=== PATIENT | male | born 1940 | race Caucasian/White ===

== ENCOUNTER 2024-08-10 15:25 | Inpatient (IN) | payer OTHER ==
[~2024-08-10] VITALS: Ht 170.2 cm; Wt 53.6 kg
[2024-08-10] MEDS ORDERED: Morphine Sulfate 4 MG/1 ML Injection ONE (16:42)
[2024-08-10] MEDS ORDERED: Ondansetron HCl 2 MG / ML 2ML Vial ONE (16:42)
[2024-08-10] MEDS ORDERED: Ondansetron HCl 2 MG / ML 2ML Vial IV ONE (16:50)
[2024-08-10] MEDS ORDERED: Morphine Sulfate 4 MG/1 ML Injection IV ONE (16:50)
[2024-08-10 17:14] LABS: BASOPHILS ABSOLUTE AUTO 0.05 K/mm3 (0.00-0.23); BASOPHILS PERCENT AUTO 1 % (0-2); EOSINOPHILS ABSOLUTE AUTO 0.11 K/mm3 (0.00-0.68); EOSINOPHILS PERCENT AUTO 1 % (0-6); Hematocrit 43.0 % (37.0-53.0); Hemoglobin 15.1 g/dL (13.5-17.5); IMMATURE GRAN ABSOLUTE AUTO 0.04 K/mm3 (0.00-0.10); IMMATURE GRAN PERCENT AUTO 1 % (0-1); LYMPHOCYTES ABSOLUTE AUTO 1.47 K/mm3 (0.84-5.20); LYMPHOCYTES PERCENT AUTO 17 % (21-46); MONOCYTES ABSOLUTE AUTO 0.64 K/mm3 (0.16-1.47); MONOCYTES PERCENT AUTO 8 % (4-13); Mean Corpuscular HGB Conc 35.1 g/dL (31.5-36.5); Mean Corpuscular Volume 94 fL (80-100); NEUTROPHILS ABSOLUTE AUTO 6.18 K/mm3 (1.96-9.15); NEUTROPHILS PERCENT AUTO 73 % (41-73); NRBC ABSOLUTE 0.00 K/mm3 (0.00-0.02); NRBC Auto 0.0 /100 WBC (0.0-0.2); Platelet Count 154 K/mm3 (150-400); RDW Coefficient Variation 13.5 % (11.7-14.2); RDW Standard Deviation 45.5 fL (35.1-46.3)
[2024-08-10 17:27] LABS: Alanine Aminotransfer (ALT/SGP 23.0 U/L (12-78); Albumin, Blood 3.9 g/dL (3.4-5.0); Albumin/Globulin Ratio 1.2 (0.8-1.8); Anion Gap 5.0 mmol/L (3-11); Aspartate Aminotrans (AST/SGOT 21.0 U/L (12-37); Bilirubin, Total 1.1 mg/dL (0.1-1.0); Blood Urea Nitrogen 17.0 mg/dL (8-24); CO2, Blood 29.0 mmol/L (21-32); Calcium, Blood 8.8 mg/dL (8.5-10.1); Chloride, Blood 108.0 mmol/L (98-108); Creatinine, Blood 0.95 mg/dL (0.60-1.20); Globulin, Blood 3.3 g/dL (2.2-4.0); Glucose, Blood 114.0 mg/dL (70-99); Potassium, Blood 4.0 mmol/L (3.5-5.5); Sodium, Blood 138.0 mmol/L (136-145); Total Protein, Blood 7.2 g/dL (6.4-8.2)
[2024-08-10 18:54] LABS: Prothrombin Time Results 11.6 Sec (9.7-11.5)
[2024-08-10] MEDS ORDERED: Morphine Sulfate 4 MG/1 ML Injection IV PRN (19:25)
[2024-08-10] MEDS ORDERED: OxyCODONE 5 mg/Acetamin 325 mg TABLET PO PRN (19:25)
[2024-08-10] MEDS ORDERED: Ondansetron HCl 2 MG / ML 2ML Vial IV PRN (19:25)
[2024-08-10] MEDS ORDERED: Albuterol 2.5 MG/3 ML VIAL INH PRN (19:30)
[2024-08-10] MEDS ORDERED: NS 1,000 ML IV SCH (20:00)
[2024-08-10 21:22] VITALS: BP 139/76
[2024-08-11 00:17] VITALS: BP 103/76
[2024-08-11] MEDS ORDERED: OMEP20ER PO (01:04)
[2024-08-11] MEDS ORDERED: TADA10TA (01:06)
[2024-08-11] MEDS ORDERED: GUAI200 PO (01:07)
[2024-08-11] MEDS ORDERED: CYCL0.05OP BOTHEYES (01:08)
[2024-08-11] MEDS ORDERED: ALBU2.5V5 INH (01:08)
[2024-08-11] MEDS ORDERED: Aspir 8181 MG PO (01:09)
[2024-08-11] MEDS ORDERED: TRAZ50 (01:17)
--- NOTE | 2024-08-11 04:12 | NUR ---
SHIFT SUMMARY ESTRELLA WAS ALERT AND ORIENTED X 3-4 ON ADMIT. PT PAIN IS CONTROLLED AT REST, EXACERBATES WITH MOVEMENT. SKIN IS INTACT WITH SOME BRUISING AND A SMALL ABRASION TO R KNEE. PT DENIES SOB, AND IS SATTING >90% ON RA. CHEST TUBE SET UP TO SUCTION. NO LEAKS OR TIDALING NOTED. LARGE BRUISE SURROUNDING INSERTION SITE. VERY LITTLE OUTPUT NOTED.
[2024-08-11 04:44] VITALS: BP 128/64
[2024-08-11 07:35] VITALS: BP 147/57
[2024-08-11] MEDS ORDERED: Enoxaparin 30 MG/0.3 ML SYR SC SCH (09:00)
--- NOTE | 2024-08-11 10:53 | NUR ---
ASSUMED CARE OF PT. A/O X 4 VERY PLEASENT TALKATIVE PT WITH 5/10 PAIN TO RIGHT LATERAL CHEST WALL. PT IS PAIN FREE IF NOT MOVING, LUNGS CLR DIMINISHED, WITH NO DIFFICULTY BREATHING. PT ENC TO TAKE DEEP BREATHS. WHILE REPOSITIONING PT GREW TO BE IN A LOT OF PAIN SO HE WAS COVERED PER MAR. DR TRINH IN FOR CONSULTATION, NO SX NOTED IN CONSULT. CALL LIGHT WITHIN REACH PT ABL;E TO MAKE NEEDS KNOWN.
[2024-08-11 14:36] VITALS: BP 126/61
[2024-08-11 19:27] VITALS: BP 119/73
[2024-08-12 02:22] VITALS: BP 112/69
--- NOTE | 2024-08-12 05:13 | NUR ---
SHIFT SUMMARY ESTRELLA WAS ALERT AND FULLY ORIENTED ON ASSESSMENT. PT SEEMS MORE ANXIOUS TONIGHT COMPARED TO PREV NOC. PT CHEST TUBE CONNECTED TO SUCTION, NO LEAKS OR FLUCTUATION NOTED, SCANT S/S OUTPUT TO COLLECTION CHAMBER. LUNG SOUNDS DIM TO ALL GANDHI. PT NOT PAINFUL AT REST, EXACERBATES WITH MOVEMENT. PT REQUESTED BREATHING TREATMENT DUE TO SOB, PT ANXIETY VERY HIGH PRIOR TO CLAIMING SOB RT SOILING BED. NO ACUTE CHANGES OVER NIGHT.
[2024-08-12 07:06] VITALS: BP 132/84
[2024-08-12 13:57] VITALS: BP 118/78
--- NOTE | 2024-08-12 14:57 | NUR ---
ASSUMPTION OF CARE ASSUMED CARE OF PT @0700. AXO 3-4 BUT VERY FORGETFUL. UTILIZES A LOT OF STAFF TIME PT NEEDS CONSTANT REASSURANCE, POSITIONING, ADL HELP, ETC. PARTICULAR WITH CARE. HAS MIZED INCONTINENCE OF BM/URINE - MANAGING BY SELF WITH STAFF ASSISTANCE. CHEST TUBE TO -20CM SUCTION ON SHIFT START. @0755 - DR TRINH CHANGED TO WATERSEAL. PT HAS TOLERATED THIS WELL - CONTINUOUS SPO2 >94%. LUNG SOUNDS UNCHANGED. PT HAS REQUIRED ONE DOSE OF PAIN MEDICATION AT THE TIME OF WRITING THIS NOTE.
--- NOTE | 2024-08-12 17:29 | NUR ---
SUMMARY SEE ASSUMPTION OF CARE NOTE. POST NOTE - NO ACUTE CHANGES. REMAINS AXO4. REMAINS ON 2LNC, CONTINUOUS SPO2 MONITORING IN PLACE - STABLE. REMAINS TO WATERSEAL CHEST TUBE - NO ACUTE RESPIRATORY CHANGES NOTED. PAIN MEDS ADMINISTERED NEEDED. PT REQUIRES MUCH MEDICAL CARE TEAM TIME, STAFF OFTEN IN ROOM. HAS STRUGGLED WITH "HEART BURN", DIDNT WANT TUMS, THEN AGREED TO THEM, THEN DENIED THEM, SO PEPTO BISMOL TABS ORDERED TO WHICH PT AGREED - STATES SOME RELIEF WITH THESE. CONTINUES WITH COMPLAINTS OF DIFFICULTY GETTING SECRETIONS OUT OF THROAT - MEDICATED WITH HOME DOSE MUCINEX. ENCOURAGING IS/FLUTTER VALVE THERAPY. ENCOURAGING DEEP BREATHING - PT RELUCTANT TO DO THIS - EDUCATED TO BEST OF ABILITY. OTHERWISE, PT RESTING OFF AND ON IN ROOM. CALL LIGHT WITHIN REACH, BED IN LOW POSITION.
[2024-08-12 19:26] VITALS: BP 130/77
[2024-08-13 05:49] VITALS: BP 135/75
[2024-08-13 07:05] VITALS: BP 114/62
[2024-08-13 10:29] LABS: BASOPHILS ABSOLUTE AUTO 0.02 K/mm3 (0.00-0.23); BASOPHILS PERCENT AUTO 0 % (0-2); EOSINOPHILS ABSOLUTE AUTO 0.16 K/mm3 (0.00-0.68); EOSINOPHILS PERCENT AUTO 2 % (0-6); Hematocrit 44.6 % (37.0-53.0); Hemoglobin 15.5 g/dL (13.5-17.5); IMMATURE GRAN ABSOLUTE AUTO 0.02 K/mm3 (0.00-0.10); IMMATURE GRAN PERCENT AUTO 0 % (0-1); LYMPHOCYTES ABSOLUTE AUTO 1.98 K/mm3 (0.84-5.20); LYMPHOCYTES PERCENT AUTO 21 % (21-46); MONOCYTES ABSOLUTE AUTO 0.83 K/mm3 (0.16-1.47); MONOCYTES PERCENT AUTO 9 % (4-13); Mean Corpuscular HGB Conc 34.8 g/dL (31.5-36.5); Mean Corpuscular Volume 93 fL (80-100); NEUTROPHILS ABSOLUTE AUTO 6.47 K/mm3 (1.96-9.15); NEUTROPHILS PERCENT AUTO 68 % (41-73); NRBC ABSOLUTE 0.00 K/mm3 (0.00-0.02); NRBC Auto 0.0 /100 WBC (0.0-0.2); Platelet Count 143 K/mm3 (150-400); RDW Coefficient Variation 13.6 % (11.7-14.2); RDW Standard Deviation 46.6 fL (35.1-46.3)
--- NOTE | 2024-08-13 10:30 | NUR ---
CHEST TUBE DR TRINH TO ROOM THIS AM. PULLED CHEST TUBE. CLEAR TEGADERM DRESSING PLACED OVER INSERTION SITE. PT ON CONTINUOUS SPO2 , REMAINS >95% ON RA. NO LUNG SOUND CHANGES AT THIS TIME. SMALL AMOUNT OF SEROUS DRAINAGE NOTED TP HAVE ACCUMULATED IN DRESSING. MONITORING AT THIS TIME. PT SLATED TO DC TODAY. AWAITING ORDERS.
[2024-08-13 10:50] LABS: Anion Gap 7.0 mmol/L (3-11); Blood Urea Nitrogen 18.0 mg/dL (8-24); CO2, Blood 27.0 mmol/L (21-32); Calcium, Blood 8.7 mg/dL (8.5-10.1); Chloride, Blood 104.0 mmol/L (98-108); Creatinine, Blood 0.76 mg/dL (0.60-1.20); Glucose, Blood 110.0 mg/dL (70-99); Potassium, Blood 3.9 mmol/L (3.5-5.5); Sodium, Blood 134.0 mmol/L (136-145)
--- NOTE | 2024-08-13 12:56 | NUR ---
ASSUMPTION / DC ASSUMED CARE OF PT @0700. AXO4. SEE PULLING OF CHEST TUBE NOTE. VSS. PT HAS HAD MULTIPLE EPISODES OF LARGE EXPECTORATION OF MUCOUS HE HAS BEEN UP AND OOB MULTIPLE TIMES THIS SHIFT. MILD PAIN CAUSED FROM THIS. PT STATES HE BELIEVES THIS IS BC THE CHEST TUBE WAS PULLED BUT ADMITS HE HASNT BEEN VERY SUCCESFUL AT COUGHING UP SECRETIONS UNTIL TODAY AND HAS BEEN COUGHING ALOT AND SUCCESFULLY EMPTYING LUNG. THIS WAS AFTER INITIATION OF FLUTTER VALVE, NEBULIZER, AND AMBULATION. PT SPO2 >94% POST CHEST TUBE REMOVEL, NO RESPIRATORY DISTRESS NOTED. WORKED WITH PHYSICAL THERAPY - RECOMMENDATION OF PT/HH NOTED. PT AGREEABLE. PT ANXIOUS ABOUT DCING BUT ALSO STATES BEING READY TO GO HOME CONSTANTY IN CONVERSATION. FOLLOWUP CXR OBTAINED AT 1200 - DR TRINH STATES OK TO DC. DC ORDERS OBTAINED FROM HOSPITALIST TEAM. AWAITING ROOMATE TO ENTERPRISE PROJECT MANAGER PT AND THEN WILL REVIEW DC ORDERS. WILL CONTINUE TO OBSERVE/INTERVENE UNTIL DC TIME.
--- NOTE | 2024-08-13 14:42 | NUR ---
dc PT DC'D AT 1440. DC INSTRUCTIONS PROVIDED TO PT WITH CAREGIVER/ROOMMATE IN ROOM. PRESCRIPTIONS SENT TO [facility]. PT INSTRUCTED REGARDING PNA PREVENTION AND FALL PREVENTION. FLUTTER VALVE SENT WITH PT - INSTRUCTED CAREGIVER SON ON USE. ALL BELONGINGS WITH PT AND SON ROOMMATE. RESPIRATORY STATUS UNCHANGED. SPO2 >95% ON RA. DRESSING TO RCW CDI - INSTRUCTED PT WHEN TO TAKE OFF PER ORDERS. PT STOOD AND TRANSFERRED INTO TRUCK AND DC'D.
== END 2024-08-13 14:31 | disposition home health service (06) | DRG 200 ==
LOC: ER 15:25 → SURS 17:42
PROVIDERS: Emergency Medicine; ADMIT Surgery
PROC: 0W9930Z Drainage of Right Pleural Cavity with Drainage Device, Percutaneous Approach (ICD-10-PCS; principal; 2024-08-10)
DX: S27.0XXA Traumatic pneumothorax, initial encounter (principal); I69.851 Hemiplegia and hemiparesis following other cerebrovascular disease affecting right dominant side; J44.9 Chronic obstructive pulmonary disease, unspecified; K21.9 Gastro-esophageal reflux disease without esophagitis; I71.40 Abdominal aortic aneurysm, without rupture, unspecified; F41.9 Anxiety disorder, unspecified; Z91.040 Latex allergy status; Z88.8 Allergy status to other drugs, medicaments and biological substances; Z79.51 Long term (current) use of inhaled steroids; Z79.82 Long term (current) use of aspirin; Z88.0 Allergy status to penicillin; Z79.899 Other long term (current) drug therapy; Z87.891 Personal history of nicotine dependence; W05.0XXA Fall from non-moving wheelchair, initial encounter
CPT/HCPCS: 32551; 36415; 71045; 71260; 74177; 80048; 80053; 85025; 85610; 94640; 94664; 94760; 94762; 96374; 96375; 97116; 97161; 99285-25; A9270; J1650; J2270; J2405; Q9967